=== PATIENT | female | born 1945 | race Caucasian/White ===

== ENCOUNTER → 2019-01-21 | Outpatient (CLI) | payer OTHER | LOC: SUPIMAGING 14:05 | PROVIDERS: ATTEND Family Medicine | DX: M25.562 Pain in left knee (principal); M25.561 Pain in right knee; G89.29 Other chronic pain; M21.061 Valgus deformity, not elsewhere classified, right knee; M21.062 Valgus deformity, not elsewhere classified, left knee | CPT/HCPCS: 73562-PN ==

== ENCOUNTER → 2019-01-26 | Outpatient (CLI) | payer OTHER | LOC: FIMAGING 14:52 | PROVIDERS: ATTEND Family Medicine | DX: Z12.31 Encounter for screening mammogram for malignant neoplasm of breast (principal) ==